=== PATIENT | male | born 1985 | race Caucasian/White ===

== ENCOUNTER 2023-05-03 00:52 | Emergency (ER) | payer SELFPAY ==
[2023-05-03] VITALS (96 sets, daily range): BP systolic 95–139; BP diastolic 36–79; PULSE 60–79; RESP 10–18; TEMP 36.5; O2SAT 92–100
--- NOTE | 2023-05-03 00:45 | RT.EKG_ITS ---
APPROVED REPORT Exam: Resting ECG Reason for Exam: pain in back of head, dizzy Patient Location: E HR:68 bpm ECG Measurements Heart Rate 68 AXIS MI 141 P 59 QRSd 98 QRS 90 QT 396 T 55 QTc 420 Conclusion Sinus rhythm...normal P axis, V-rate 60- 99 sinus rhythm, normal axis, normal intervals, non ischemic
--- NOTE | 2023-05-03 01:00 | DI.RAD_ITS ---
Exam(s) XR CHEST 2V PA LATERAL EXAM: XR CHEST 2V PA LATERAL CLINICAL HISTORY: heache, meth use TECHNIQUE: 2D digital imaging was performed of the chest. Two images were obtained. PA and lateral views were obtained. COMPARISON: No exams were available for comparison FINDINGS: MEDIASTINUM: Normal. HEART: Normal. PULMONARY VASCULATURE: Normal. LUNGS: Mild perihilar atelectasis or scarring. No focal consolidating infiltrates are present. PLEURAL SPACE: No pleural effusion or pneumothorax. BONE:Within normal limits for the patient's age. OTHER FINDINGS:Normal. IMPRESSION: No focal consolidating infiltrates. DATA REPOSITORY: RADIATION DOSE DELIVERED:
--- NOTE | 2023-05-03 01:00 | DI.CT_ITS ---
Exam(s) CT HEAD WO EXAM: CT HEAD WO CLINICAL HISTORY: headache, posterior, meth use. TECHNIQUE: Imaging Protocol: Axial computed tomography images with coronal and sagittal reformatted images were created and reviewed COMPARISON: No exams were available for comparison FINDINGS: Ventricles and Extra axial spaces: Normal in size and morphology for the patient's age. Hemorrhage: None. Cerebral parenchyma: Normal. Midline shift: None. Brainstem/Cerebellum: Normal. Calvarium: There is an old left temporal parietal craniotomy with repair. Visualized Paranasal sinuses/Mastoids: Clear. Soft Tissues: Unremarkable. IMPRESSION: No acute intracranial process. RADIATION DOSE DELIVERED: 754.69mGy.cm Total DLP DATA REPOSITORY: All CT scans at this facility are submitted to the National Radiology Data Registry (NRDR) Dose Index Registry (DIR) with the [employer] ([employer]). RADIATION OPTIMIZATION: All CT scans at this facility use at least one of these dose optimization te chniques: automated exposure control; mA and/or kV adjustment per patient size (includes targeted exa ms where dose is matched to clinical indication); or iterative reconstruction.
--- NOTE | 2023-05-03 01:04 | ED.GENADUL_ITS ---
Discharge Plan Disposition Patient Disposition: Home Condition: Improving Discharge Details Chief Complaint: Headache Clinical Impression: Headache Primary Care Provider: Unknown,Unknown ED Provider: Thierry Raza Home Meds and New Rx's Prescriptions: No Action bupropion HCl [Wellbutrin XL] 300 mg Tablet Extended Release 24 Hr 300 mg PO ONCE Discharge Instructions Instructions: General Headache (ED) Additional Instructions: Please follow-up with primary care referral. Please return to the emergency department for any worsening symptoms Medical Decision Making 37-year-old male presents with paresthesia to back of his head over the past day, with mild gradual onset headache. Patient is afebrile nontoxic ne urologically intact normotensive nontachycardic. Nonmeningeal. Patient endorses injecting methamphetamine within the last 5 hours. EKG normal sinus rhythm nonischemic. Likely drug-induced anxiety/paresthesia versus anxiety versus electrolyte abnormality versus lower suspicion for encephalitis meningitis intracranial hemorrhage ACS arrhythmia PE or trauma will obtain screening labs, CT head chest x-ray EKG, fluids benzodiazepine. Close reassessment of symptoms 02: 37 patient resting comfortably no acute distress. Fingerstick at bedside was as low as 43, given D50 push, improvement to 160s. Currently resting comfortably sleeping, CT head chest x-ray unremarkable Labs largely unremarkable. Consider paresthesia in the setting of methamphetamine use and transient hypoglycemia 3: 23 patient still resting comfortably, currently sleeping, maintaining oxygen saturations and blood pressure. Current vital signs blood pressure 114/59, heart rate 72, oxygen saturation 98% on room air. Labs and imaging unremarkable. Will allow patient time to rest, close reassessment likely discharge this a.m. HPI General Date/Time Provider Initiated Documentation: 05/03/23 00:56 . HPI Narrative: 57-year-old male presents with lightheadedness and posterior headache over the past day, feels a numb sensation in the back of his head. Denies chest pain shortness of breath nausea or vomiting. Denies recent illness. No fevers. Does endorse recent meth use within the last 5 hours, injection Related Data Home Medications Medication Instructions Recorded Confirmed bupropion HCl 300 mg 24 hr tablet, 300 mg PO ONCE 05/03/23 05/03/23 extended release (Wellbutrin XL) Allergies Allergy/AdvReac Type Severity Reaction Status Date / Time No Known Allergies Allergy Unverified 05/03/23 01:09 General Stated Complaint: Headache RENEE: 3 Review of Systems Narrative: Review of Systems Constitutional: negative Eyes: negative ENT: negative Cardiovascular: negative Respiratory: negative Gastrointestinal: negative : negative Musculoskeletal: negative Skin: negative Neurologic: Headache, paresthesia Psych: negative PFSH All Active Problems (Updated 05/03/23 @ 04:33 by Thierry Raza MD) Headache (Acute) Social History Smoking/Tobacco Use Status: Current every day Tobacco Type: cigarettes Smoking risk assessment performed?: Yes Alcohol Intake: current Alcohol Intake frequency: holidays/special occasions only Drug use: Daily Substance use type: marijuana and amphetamines Do you feel safe at home: Yes Do you feel safe in your relationship?: Yes Exam Narrative Exam Narrative: Physical Examination General: alert, awake, cooperative, appears moderately uncomfortable HEENT: normocephalic, atraumatic; PERRL, EOM intact, conjunctiva normal; no nasal discharge; moist mucous membranes, oral and pharyngeal mucosa normal, tolerating secretions Neck: supple, trachea midline; full ROM Chest: normal to inspection Respiratory: normal respiratory effort, speaking in full sentences, clear to auscultation, no wheezing, rales or rhonchi Cardiac: regular rate, regular rhythm, S1S2 intact, no murmurs rubs or gallops GI: abdomen soft, non-tender, non-distended; no palpable mass or hepatosplenomegaly Skin: no lesions, rashes or trauma appreciated Neuro: AAOx3, normal speech, moving all extremities; 5-5 strength upper and lower extremities, cranial nerves II through XII intact, no ataxia Extremities: No signs of trauma Psych: Appropriate mood and affect Course Vital Signs Vital signs: Vital Signs Temperature 36.5 C 05/03/23 00:55 Pulse 78 05/03/23 00:55 Respiratory Rate 18 05/03/23 00:55 Blood Pressure 139/79 05/03/23 00:55 Pulse Oximetry 99 05/03/23 00:55 Temperature 36.5 C 05/03/23 00:55 Temperature Source Oral 05/03/23 00:55 Pulse 78 05/03/23 00:55 Respiratory Rate 18 05/03/23 00:55 Blood Pressure 139/79 05/03/23 00:55 Pulse Oximetry 99 05/03/23 00:55 Oxygen Delivery Method Room Air 05/03/23 00:55 Oxygen Flow Rate 0 05/03/23 00:55 Pain Level 4 05/03/23 00:55
[2023-05-03] MEDS: LORazepam 2 MG/ML VIAL IVP (01:17)
[2023-05-03] MEDS: Normal Saline 1,000 ML 1000 ML IV (01:18)
[2023-05-03 01:27] LABS: Abs Immature Grans 0.01 10^3/uL (0.0-0.06); HCT 44.4 % (40.0-50.0); HGB 14.8 g/dL (13.5-17.5); MCH 29.4 pg (27.0-33.0); MCHC 33.3 % (32.0-36.0); MCV 88 fL (80-95); MPV 9.9 fL (8.0-11.0); Platelet Count 343 10^3/uL (130-400); RBC 5.03 10^6/uL (4.36-5.78); RDW-SD 38.6 fL; WBC 8.13 10^3/uL (4.4-10.8)
[2023-05-03 01:35] LABS: Absolute Eosinophil Count 0.24 10^3/uL (0.0-0.7); Absolute Lymphocyte Count 4.15 10^3/uL (1.2-3.4); Absolute Monocyte Count 0.41 10^3/uL (0.1-0.8); Absolute Neutrophil Count 3.33 10^3/uL (1.2-6.7); Atypical Lymphocytes % 1
[2023-05-03 01:36] LABS: Diff Comment Manual Differential; RBC Morphology Normal
[2023-05-03 01:43] LABS: ALT 51 U/L (16-63); AST 35 U/L (15-37); Albumin 4.3 g/dL (3.4-5.0); Alkaline Phosphatase 84 U/L (46-116); BUN 20 mg/dL (7-18); Bilirubin, Total 0.3 mg/dL (0.2-1.0); CREATININE 1.1 mg/dL (0.70-1.30); Calcium 9.2 mg/dL (8.5-10.1); Chloride 103 mmol/L (98-107); Creatine Kinase 321 U/L (39-308); Estimated GFR 88.12 (mL/min/1.73m2); INR 0.9 (0.9-1.1); PTT Activated 27.6 sec (21.5-31.9); Potassium 3.6 mmol/L (3.5-5.1); Prothrombin Time 9.4 sec (9.3-11.0); Sodium 142 mmol/L (136-145); Total Protein 8.4 g/dL (6.4-8.2)
[2023-05-03 01:45] LABS: ETHANOL BLOOD < 3.0 mg/dL (<10)
[2023-05-03 01:47] LABS: Glucose 49 mg/dL (74-106)
[2023-05-03] MEDS: Dextrose 50%-Water 25 GM/50 ML SYR IVP (01:51)
[2023-05-03 01:53] LABS: TSH (W/Ref FT4) 2.98 uIU/mL (0.36-3.74)
--- NOTE | 2023-05-03 02:13 | DI.VRAD_ITS ---
PROCEDURE INFORMATION: Exam: CT Head Without Contrast Exam date and time: 05/03/2023 1:28 AM Age: 37 years old Clinical indication: Other: Headache, meth use TECHNIQUE: Imaging protocol: Computed tomography of the head without contrast. Radiation optimization: All CT scans at this facility use at least one of these dose optimization techniques: automated exposure control; mA and/or kV adjustment per patient size (includes targeted exams where dose is matched to clinical indication); or iterative reconstruction. COMPARISON: No relevant prior studies available. FINDINGS: Brain: There is no significant cerebral atrophy present. There is no significant white matter disease present. There is no evidence of intracranial hemorrhage. There is no evidence of acute intracranial injury or other pathologic process. There is no evidence of an acute ischemic event. No evidence of an acute intracranial abnormality. Cerebral ventricles: The ventricular system is normal in caliber and are seen in the midline. Paranasal sinuses: There is no evidence of fluid levels, mucoperiosteal thickening, or opacification to suggest acute or chronic sinusitis. Mastoid air cells: Sclerosis and soft tissue density seen within the mastoid air cells consistent with chronic or remote mastoiditis. No evidence of air-fluid levels to suggest acute mastoiditis. Orbital cavities: The orbits are normal without evidence of fracture. There is no evidence of retro-bulbar hemorrhage. There is no evidence of globe or lens injury. Bones/joints: Old left-sided temporal parietal craniotomy with repair. The bony cranium shows no evidence of acute injury or other acute pathologic processes. Soft tissues: The extracranial soft tissues are normal. IMPRESSION: 1. No evidence of an acute intracranial abnormality. 2. Postoperative changes left temporoparietal region Dictated and Authenticated by: Bon Combs MD. Ordering:JEREMÍAS Guadarrama MD
--- NOTE | 2023-05-03 02:14 | DI.VRAD_ITS ---
PROCEDURE INFORMATION: Exam: XR Chest Exam date and time: 05/03/2023 1:32 AM Age: 37 years old Clinical indication: Other: Headache, meth use TECHNIQUE: Imaging protocol: Radiologic exam of the chest. Views: 2 views. COMPARISON: No relevant prior studies available. FINDINGS: Lungs: Mild perihilar soft tissue stranding with scarring and atelectasis. There is no evidence of focal pulmonary consolidation. The pulmonary vasculature is normal. Pleural spaces: There is no evidence of pneumothorax. There are no pleural effusions present. Heart/Mediastinum: The cardiac silhouette is within normal limits. The mediastinum is normal. Bones/joints: The spine, sternum, ribs, and pectoral girdles show no evidence of acute abnormality Other findings: There are no soft tissue masses or calcifications. IMPRESSION: Mild perihilar soft tissue stranding with scarring and atelectasis. No definitive active cardiopulmonary disease. Dictated and Authenticated by: Bon Combs MD. Ordering:JEREMÍAS Guadarrama MD
--- NOTE | 2023-05-03 04:58 | NUR.NOTE ---
THIS NURSE WENT IN THE ROOM TO ROAD TEST THE PT AND I WAS UNABLE TO GET HIM TO WAKE UP ENOUGH TO WALK SAFELY. ED MD NOTIFIED. Nursing Note:
== END 2023-05-03 08:18 | disposition home or self-care (01) ==
PROVIDERS: Emergency Provider Emergency Medicine
DX: R51.9 Headache, unspecified (principal); R50.9 Fever, unspecified; R42 Dizziness and giddiness; F15.90 Other stimulant use, unspecified, uncomplicated; R20.2 Paresthesia of skin; E16.2 Hypoglycemia, unspecified; F17.200 Nicotine dependence, unspecified, uncomplicated
CPT/HCPCS: 36415; 80053; 82550; 82962; 93005; 96361; 96374; 96375; 99285; 70450; 71046; 80320; 84443; 85025; 85610; 85730; 93010; J2060